=== PATIENT | female | born 1950 | race Caucasian/White ===

== ENCOUNTER 2018-04-26 18:16 | Inpatient (IN) | payer MEDICARE, OTHER ==
[2018-04-26] MEDS ORDERED: NORepinephrine 8MG/250 ML (PMX 250 ML IV (18:43)
[2018-04-26] MEDS: NORepinephrine 8MG/250 ML (PMX 250 ML IV (19:04)
[2018-04-26 19:54] LABS: ADD MAN DIFF? NO
[2018-04-26 19:56] LABS: WHITE BLOOD COUNT 17.2 10^3/ul (4.8-10.8)
[2018-04-26 19:56] LABS: ABNORMAL IP MESSAGE 1; BASOPHILS % 0.2 % (0.0-2.0); EOSINOPHILS % 0.1 % (0.0-7.0); HEMATOCRIT 31.2 % (37.0-47.0); HEMOGLOBIN 9.4 g/dl (12.0-16.0); LYMPHOCYTES # 1.1 10^3/ul (0.8-2.9); LYMPHOCYTES % 6.1 % (15.0-51.0); MEAN CORPUSCULAR HEMOGLOBIN 33.9 pg (29.0-33.0); MEAN CORPUSCULAR HGB CONC 30.1 g/dl (32.0-37.0); MEAN CORPUSCULAR VOLUME 112.6 fl (82.0-101.0); MEAN PLATELET VOLUME 11.9 fl (7.4-10.4); MONOCYTE # 1.6 10^3/ul (0.3-0.9); MONOCYTES % 9.2 % (0.0-11.0); NEUTROPHIL # 14.4 10^3/ul (1.6-7.5); NEUTROPHILS % 83.5 % (39.0-77.0); PLATELET COUNT 256 10^3/UL (140-415); RED BLOOD COUNT 2.77 10^6/ul (4.20-5.40); RED CELL DISTRIBUTION WIDTH 13.9 % (11.5-14.5)
[2018-04-26 20:02] LABS: POSITIVE DIFF @See below
[2018-04-26] MEDS ORDERED: ONDANSETRON 4 MG INJ IV (20:30)
[2018-04-26 20:34] LABS: ALANINE AMINOTRANSFERASE 426 IU/L (13-69); ALBUMIN 3.3 g/dl (3.3-4.9); ALBUMIN/GLOBULIN RATIO 0.89; ALKALINE PHOSPHATASE 362 IU/L (42-121); ANION GAP 9 (5-13); ASPARTATE AMINO TRANSFERASE 307 IU/L (15-46); BILIRUBIN,INDIRECT 0.4 mg/dl (0-1.1); BILIRUBIN,TOTAL 3.9 mg/dl (0.2-1.3); BLOOD UREA NITROGEN 57 mg/dl (7-20); CALCIUM 8.8 mg/dl (8.4-10.2); CARBON DIOXIDE 26 mmol/L (21-31); CHLORIDE 114 mmol/L (97-110); CREATININE 1.42 mg/dl (0.44-1.00); Estimated GFR 37 mL/min (>60); GLUCOSE 148 mg/dl (70-220); MAGNESIUM 3.4 mg/dl (1.7-2.5); POTASSIUM 4.8 mmol/L (3.5-5.1); SODIUM 149 mmol/L (135-144)
[2018-04-26 20:51] LABS: HAAIG REFLEX REFLEX FILED
[2018-04-26 21:26] LABS: LACTIC ACID 1.4 mmol/L (0.5-2.0)
[2018-04-26] MEDS ORDERED: VANCOMYCIN IV PER PHARMACY XX (21:30)
[2018-04-26 21:50] LABS: THYROID STIMULATING HORMONE 0.054 MIU/L (0.465-4.680)
[2018-04-26 21:53] LABS: HEPATITIS B SURFACE ANTIGEN NEGATIVE (NEGATIVE)
[2018-04-26] MEDS: ALBUMIN HUMAN 25% 100 ML IV ×2 (21:58→23:04)
[2018-04-26] MEDS: VANCOMYCIN HCL 1.5 GM in SOD CHLORIDE 0.9% 250 ML IVPB (22:00)
[2018-04-26 22:10] LABS: HEPATITIS B CORE ANTIBODY NEGATIVE (NEGATIVE); HEPATITIS C VIRAL ANTIBODY NEGATIVE (NEGATIVE)
[2018-04-26 23:22] LABS: HEPATITIS B SURFACE ANTIBODY POSITIVE (NEGATIVE)
[2018-04-27] MEDS: SOD CHLORIDE 0.9% 1,000 ML IV (01:14)
[2018-04-27] MEDS: DEXTROSE 5%-0.45% NACL 1,000 ML IV ×3 (01:14→21:55)
[2018-04-27 04:52] LABS: AADO2 Arterial 308.5 mmHg (7.0-24.0); Arterial Base Excess -0.8 mmol/L (-3.0-3); Arterial Blood Gas Oxygen Sat 95.7 mmHG (95.0-98.0); Arterial COHb 0.1 % (0.0-3.0); Arterial Fraction of Oxyhgb 95.3 % (93.0-99.0); Arterial HCO3 23.6 mmol/L (22.0-26.0); Arterial MetHb 0.3 % (0.0-1.5); Arterial pCO2 38.3 mmhg (35-45); MODE TRACH COLLAR; Site Right Radial
[2018-04-27 05:27] LABS: ADD MAN DIFF? NO
[2018-04-27 05:34] LABS: WHITE BLOOD COUNT 15.5 10^3/ul (4.8-10.8)
[2018-04-27 05:34] LABS: BASOPHILS % 0.2 % (0.0-2.0); EOSINOPHILS % 0.2 % (0.0-7.0); HEMATOCRIT 26.8 % (37.0-47.0); HEMOGLOBIN 8.3 g/dl (12.0-16.0); LYMPHOCYTES # 1.2 10^3/ul (0.8-2.9); LYMPHOCYTES % 7.8 % (15.0-51.0); MEAN CORPUSCULAR HEMOGLOBIN 34.7 pg (29.0-33.0); MEAN CORPUSCULAR VOLUME 112.1 fl (82.0-101.0); MEAN PLATELET VOLUME 12.9 fl (7.4-10.4); MONOCYTE # 1.3 10^3/ul (0.3-0.9); MONOCYTES % 8.6 % (0.0-11.0); NEUTROPHIL # 12.8 10^3/ul (1.6-7.5); NEUTROPHILS % 82.6 % (39.0-77.0); PLATELET COUNT 215 10^3/UL (140-415); RED BLOOD COUNT 2.39 10^6/ul (4.20-5.40); RED CELL DISTRIBUTION WIDTH 14.1 % (11.5-14.5)
[2018-04-27] MEDS: PIPER-TAZO 3.375 GM IV (PMX) 100 ML IVPB ×3 (05:44→21:29)
[2018-04-27] MEDS: PANTOPRAZOLE 40 MG INJ IV (05:44)
[2018-04-27 05:56] LABS: IRON 19 ug/dl (35-150)
[2018-04-27 06:06] LABS: % IRON SATURATION 10 % SAT (22-52); TOTAL IRON BINDING CAPACITY 188 ug/dl (241-421)
[2018-04-27 06:17] LABS: ALANINE AMINOTRANSFERASE 311 IU/L (13-69); ALBUMIN 3.6 g/dl (3.3-4.9); ALKALINE PHOSPHATASE 290 IU/L (42-121); ANION GAP 10 (5-13); ASPARTATE AMINO TRANSFERASE 187 IU/L (15-46); BILIRUBIN,INDIRECT 0.5 mg/dl (0-1.1); BILIRUBIN,TOTAL 4.4 mg/dl (0.2-1.3); BLOOD UREA NITROGEN 54 mg/dl (7-20); CALCIUM 8.7 mg/dl (8.4-10.2); CARBON DIOXIDE 25 mmol/L (21-31); CHLORIDE 114 mmol/L (97-110); CHOL/HDL RATIO 7.8 RATIO; CHOLESTEROL 142 mg/dl (100-200); CREATININE 1.56 mg/dl (0.44-1.00); Estimated GFR 33 mL/min (>60); GLUCOSE 147 mg/dl (70-220); HDL CHOLESTEROL 18 mg/dl (33-92); LDL CHOLESTEROL,CALCULATED 95 mg/dl; POTASSIUM 4.2 mmol/L (3.5-5.1); SODIUM 149 mmol/L (135-144); TOTAL PROTEIN 7.2 g/dl (6.1-8.1); TRIGLYCERIDES 144 mg/dl (0-149)
[2018-04-27 06:31] LABS: ACETAMINOPHEN < 10.0 ug/ml (10.0-30.0)
[2018-04-27 06:45] LABS: FREE T4 (FREE THYROXINE) 1.62 ng/dl (0.78-2.44)
[2018-04-27 06:46] LABS: FREE T3 3.11 pg/ml (2.77-5.27)
[2018-04-27] MEDS: SODIUM CHLORIDE 0.45% 500 ML BAG IV* (06:49)
[2018-04-27 07:09] LABS: FOLATE > 20.0 ng/ml (2.8-20.0)
[2018-04-27] MEDS: ALBUTEROL 0.083% (NEB) 2.5 MG/3 ML AMP NEB ×2 (07:52→14:14)
[2018-04-27] MEDS: FOLIC ACID 1 MG TAB GTB (08:15)
[2018-04-27] MEDS: ACETAMINOPHEN 325 MG TAB GTB ×2 (08:15→19:56)
[2018-04-27] MEDS: LEVETIRACETAM (100 MG/ML) 5ML CUP GTB ×2 (08:15→20:25)
[2018-04-27] MEDS: PHENOBARBITAL (4 MG/ML) 5ML CUP GTB ×2 (09:02→20:25)
[2018-04-27] MEDS: NA PHOSPHATE/BIPHOS 133 ML ENEMA PR (12:28)
[2018-04-27 12:58] LABS: INR 1.33; PROTIME 16.6 Sec (11.9-14.9); PT RATIO 1.3
[2018-04-27] MEDS: NORepinephrine 8MG/250 ML (PMX 250 ML IV (14:52)
[2018-04-27 14:58] LABS: AADO2 Arterial 573.3 mmHg (7.0-24.0); Allen Test ACCEPTAB; Arterial Base Excess -4.1 mmol/L (-3.0-3); Arterial COHb 0.3 % (0.0-3.0); Arterial Fraction of Oxyhgb 93.5 % (93.0-99.0); Arterial HCO3 22.9 mmol/L (22.0-26.0); Arterial MetHb 0.2 % (0.0-1.5); Arterial pCO2 50.7 mmhg (35-45); MODE TRACH COLLAR; Site Right Radial
[2018-04-27] MEDS: FENTAnyl (DRIP) 1000 mcg/100mL 100 ML IV (15:48)
[2018-04-27] MEDS: VANCOMYCIN 1 GM 250 ML IVPB (21:57)
[2018-04-28] MEDS: NORepinephrine 8MG/250 ML (PMX 250 ML IV ×5 (00:38→22:23)
[2018-04-28 05:06] LABS: ADD MAN DIFF? NO
[2018-04-28] MEDS: PANTOPRAZOLE 40 MG INJ IV (05:12)
[2018-04-28] MEDS: PIPER-TAZO 3.375 GM IV (PMX) 100 ML IVPB ×3 (05:12→22:30)
[2018-04-28 05:17] LABS: WHITE BLOOD COUNT 15.3 10^3/ul (4.8-10.8)
[2018-04-28 05:17] LABS: BASOPHILS % 0.2 % (0.0-2.0); EOSINOPHILS # 0.5 10^3/ul (0.0-0.5); EOSINOPHILS % 3.2 % (0.0-7.0); HEMATOCRIT 27.5 % (37.0-47.0); HEMOGLOBIN 8.4 g/dl (12.0-16.0); LYMPHOCYTES # 1.8 10^3/ul (0.8-2.9); LYMPHOCYTES % 11.5 % (15.0-51.0); MEAN CORPUSCULAR HEMOGLOBIN 33.9 pg (29.0-33.0); MEAN CORPUSCULAR HGB CONC 30.5 g/dl (32.0-37.0); MEAN CORPUSCULAR VOLUME 110.9 fl (82.0-101.0); MEAN PLATELET VOLUME 12.5 fl (7.4-10.4); MONOCYTES % 6.4 % (0.0-11.0); PLATELET COUNT 239 10^3/UL (140-415); RED BLOOD COUNT 2.48 10^6/ul (4.20-5.40); RED CELL DISTRIBUTION WIDTH 14.4 % (11.5-14.5)
[2018-04-28] MEDS: ACETAMINOPHEN 325 MG TAB GTB ×2 (05:19→12:14)
[2018-04-28 05:41] LABS: ALANINE AMINOTRANSFERASE 275 IU/L (13-69); ALBUMIN 3.2 g/dl (3.3-4.9); ALBUMIN/GLOBULIN RATIO 0.91; ALKALINE PHOSPHATASE 293 IU/L (42-121); ANION GAP 13 (5-13); ASPARTATE AMINO TRANSFERASE 210 IU/L (15-46); BILIRUBIN,INDIRECT 0.4 mg/dl (0-1.1); BILIRUBIN,TOTAL 3.1 mg/dl (0.2-1.3); BLOOD UREA NITROGEN 55 mg/dl (7-20); CALCIUM 8.1 mg/dl (8.4-10.2); CARBON DIOXIDE 20 mmol/L (21-31); CHLORIDE 116 mmol/L (97-110); CREATININE 2.03 mg/dl (0.44-1.00); Estimated GFR 24 mL/min (>60); GLUCOSE 165 mg/dl (70-220); POTASSIUM 3.6 mmol/L (3.5-5.1); SODIUM 149 mmol/L (135-144); TOTAL PROTEIN 6.7 g/dl (6.1-8.1)
[2018-04-28] MEDS: DEXTROSE 5% 1,000 ML IV ×2 (06:14→15:52)
[2018-04-28] MEDS: LEVETIRACETAM (100 MG/ML) 5ML CUP GTB ×2 (09:30→20:51)
[2018-04-28] MEDS: FOLIC ACID 1 MG TAB GTB (09:31)
[2018-04-28] MEDS: PHENOBARBITAL (4 MG/ML) 5ML CUP GTB ×2 (09:31→20:52)
[2018-04-28] MEDS: PHENYLephrine 40 MG in DEXTROSE 5% 246 ML IV ×4 (11:08→22:22)
[2018-04-28] MEDS: DILTIAZEM 25 MG INJ IV (15:45)
[2018-04-28] MEDS: POTASSIUM CHLORIDE 100 ML IVPB ×2 (15:51→18:29)
[2018-04-28] MEDS: AMIODARONE 150MG/D5W BOLUS 100 ML IV (15:59)
[2018-04-28 16:01] LABS: MAGNESIUM 2.9 mg/dl (1.7-2.5)
[2018-04-28] MEDS: AMIODARONE 900 MG in DEXTROSE 5% 482 ML IV ×2 (16:20→22:26)
[2018-04-28] MEDS: ALBUTEROL 0.083% (NEB) 2.5 MG/3 ML AMP NEB (19:40)
[2018-04-28] MEDS: VANCOMYCIN 1 GM 250 ML IVPB (23:10)
[2018-04-29] MEDS: PHENYLephrine 40 MG in DEXTROSE 5% 246 ML IV ×5 (00:17→21:22)
[2018-04-29] MEDS: NORepinephrine 8MG/250 ML (PMX 250 ML IV ×3 (00:44→14:35)
[2018-04-29] MEDS: VASOPRESSIN 60 UNIT in DEXTROSE 5% 57 ML IV ×3 (00:55→23:29)
[2018-04-29] MEDS: DEXTROSE 5% 1,000 ML IV (01:45)
[2018-04-29] MEDS: ACETAMINOPHEN 325 MG TAB GTB (03:04)
[2018-04-29 05:31] LABS: ADD MAN DIFF? NO
[2018-04-29 05:52] LABS: BASOPHIL # 0.1 10^3/ul (0.0-0.1); BASOPHILS % 0.3 % (0.0-2.0); EOSINOPHILS # 0.9 10^3/ul (0.0-0.5); EOSINOPHILS % 6.1 % (0.0-7.0); HEMATOCRIT 25.5 % (37.0-47.0); HEMOGLOBIN 8.1 g/dl (12.0-16.0); LYMPHOCYTES # 1.6 10^3/ul (0.8-2.9); LYMPHOCYTES % 10.7 % (15.0-51.0); MEAN CORPUSCULAR HEMOGLOBIN 34.2 pg (29.0-33.0); MEAN CORPUSCULAR HGB CONC 31.8 g/dl (32.0-37.0); MEAN CORPUSCULAR VOLUME 107.6 fl (82.0-101.0); MEAN PLATELET VOLUME 12.1 fl (7.4-10.4); MONOCYTES % 6.3 % (0.0-11.0); NEUTROPHIL # 11.6 10^3/ul (1.6-7.5); NEUTROPHILS % 76.1 % (39.0-77.0); PLATELET COUNT 238 10^3/UL (140-415); RED BLOOD COUNT 2.37 10^6/ul (4.20-5.40); RED CELL DISTRIBUTION WIDTH 14.1 % (11.5-14.5)
[2018-04-29 05:52] LABS: WHITE BLOOD COUNT 15.2 10^3/ul (4.8-10.8)
[2018-04-29] MEDS: PANTOPRAZOLE 40 MG INJ IV (06:08)
[2018-04-29] MEDS: PIPER-TAZO 3.375 GM IV (PMX) 100 ML IVPB ×3 (06:11→22:08)
[2018-04-29 06:20] LABS: VANCOMYCIN,RANDOM 25.3 ug/ml
[2018-04-29 07:34] LABS: ALANINE AMINOTRANSFERASE 165 IU/L (13-69); ALBUMIN 2.6 g/dl (3.3-4.9); ALBUMIN/GLOBULIN RATIO 0.78; ALKALINE PHOSPHATASE 202 IU/L (42-121); ANION GAP 11 (5-13); ASPARTATE AMINO TRANSFERASE 93 IU/L (15-46); BILIRUBIN,INDIRECT 0.3 mg/dl (0-1.1); BILIRUBIN,TOTAL 0.7 mg/dl (0.2-1.3); BLOOD UREA NITROGEN 48 mg/dl (7-20); CALCIUM 7.4 mg/dl (8.4-10.2); CARBON DIOXIDE 17 mmol/L (21-31); CHLORIDE 107 mmol/L (97-110); CREATININE 1.99 mg/dl (0.44-1.00); Estimated GFR 25 mL/min (>60); GLUCOSE 175 mg/dl (70-220); POTASSIUM 3.7 mmol/L (3.5-5.1); SODIUM 135 mmol/L (135-144); TOTAL PROTEIN 5.9 g/dl (6.1-8.1)
[2018-04-29 07:50] LABS: AADO2 Arterial 127.6 mmHg (7.0-24.0); Allen Test ACCEPTAB; Arterial Base Excess -8.7 mmol/L (-3.0-3); Arterial Blood Gas Oxygen Sat 99.1 mmHG (95.0-98.0); Arterial COHb 0.3 % (0.0-3.0); Arterial Fraction of Oxyhgb 98.4 % (93.0-99.0); Arterial MetHb 0.4 % (0.0-1.5); Arterial pCO2 29.9 mmhg (35-45); MODE VENT - AC; Site Right Radial
[2018-04-29] MEDS: FOLIC ACID 1 MG TAB GTB (08:31)
[2018-04-29] MEDS: LEVETIRACETAM (100 MG/ML) 5ML CUP GTB (08:31)
[2018-04-29] MEDS: DEXTROSE 5%-0.45% NACL 1,000 ML IV ×2 (09:56→20:14)
[2018-04-29 11:05] LABS: AMYLASE 136 U/L (11-123)
[2018-04-29 11:05] LABS: LIPASE 246 U/L (23-300)
[2018-04-29] MEDS ORDERED: PHENOBARBITAL (4 MG/ML) 5ML CUP (11:30)
[2018-04-29] MEDS: PHENOBARBITAL (4 MG/ML) 5ML CUP GTB (11:33)
[2018-04-29] MEDS: AMIODARONE 900 MG in DEXTROSE 5% 482 ML IV (15:29)
[2018-04-29] MEDS: AMIODARONE 150MG/D5W BOLUS 100 ML IV (17:21)
[2018-04-29] MEDS: LEVETIRACETAM 500 MG (PMX) 100 ML IVPB (20:14)
[2018-04-29] MEDS: LORAZEPAM 2 MG INJ IV (20:15)
[2018-04-29] MEDS: PHENOBARBITAL 65 MG INJ IV (20:15)
[2018-04-29] MEDS ORDERED: PHENOBARBITAL (4 MG/ML) 5ML CUP GTB (21:00)
[2018-04-29] MEDS ORDERED: LEVETIRACETAM 1500 MG (PMX) 100 ML IVPB (21:00)
[2018-04-29 21:45] LABS: VANCOMYCIN,TROUGH 21.5 ug/ml (10.0-20.0)
[2018-04-30] MEDS: PHENYLephrine 40 MG in DEXTROSE 5% 246 ML IV ×4 (01:55→19:59)
[2018-04-30 03:59] LABS: PHENOBARBITAL 29.9 mg/L (15.0-40.0)
[2018-04-30] MEDS: DEXTROSE 5%-0.45% NACL 1,000 ML IV (05:23)
[2018-04-30 05:33] LABS: ADD MAN DIFF? NO
[2018-04-30] MEDS: PIPER-TAZO 3.375 GM IV (PMX) 100 ML IVPB (05:38)
[2018-04-30 05:39] LABS: WHITE BLOOD COUNT 10.5 10^3/ul (4.8-10.8)
[2018-04-30 05:39] LABS: BASOPHILS % 0.3 % (0.0-2.0); EOSINOPHILS # 0.7 10^3/ul (0.0-0.5); EOSINOPHILS % 6.3 % (0.0-7.0); HEMATOCRIT 22.5 % (37.0-47.0); LYMPHOCYTES # 1.4 10^3/ul (0.8-2.9); LYMPHOCYTES % 13.3 % (15.0-51.0); MEAN CORPUSCULAR HEMOGLOBIN 33.3 pg (29.0-33.0); MEAN CORPUSCULAR HGB CONC 31.1 g/dl (32.0-37.0); MEAN CORPUSCULAR VOLUME 107.1 fl (82.0-101.0); MONOCYTE # 0.7 10^3/ul (0.3-0.9); MONOCYTES % 6.6 % (0.0-11.0); NEUTROPHIL # 7.6 10^3/ul (1.6-7.5); NEUTROPHILS % 72.9 % (39.0-77.0); PLATELET COUNT 217 10^3/UL (140-415); RED CELL DISTRIBUTION WIDTH 13.7 % (11.5-14.5)
[2018-04-30] MEDS: PANTOPRAZOLE 40 MG INJ IV (05:39)
[2018-04-30 06:14] LABS: MAGNESIUM 2.1 mg/dl (1.7-2.5)
[2018-04-30 06:35] LABS: ALANINE AMINOTRANSFERASE 115 IU/L (13-69); ALBUMIN 2.4 g/dl (3.3-4.9); ALBUMIN/GLOBULIN RATIO 0.77; ALKALINE PHOSPHATASE 168 IU/L (42-121); ANION GAP 14 (5-13); ASPARTATE AMINO TRANSFERASE 47 IU/L (15-46); BILIRUBIN,INDIRECT 0.1 mg/dl (0-1.1); BILIRUBIN,TOTAL 0.1 mg/dl (0.2-1.3); BLOOD UREA NITROGEN 40 mg/dl (7-20); CALCIUM 7.2 mg/dl (8.4-10.2); CARBON DIOXIDE 16 mmol/L (21-31); CHLORIDE 101 mmol/L (97-110); CREATININE 2.18 mg/dl (0.44-1.00); Estimated GFR 22 mL/min (>60); GLUCOSE 113 mg/dl (70-220); POTASSIUM 3.1 mmol/L (3.5-5.1); SODIUM 131 mmol/L (135-144); TOTAL PROTEIN 5.5 g/dl (6.1-8.1)
[2018-04-30 07:49] LABS: AADO2 Arterial 72.3 mmHg (7.0-24.0); Allen Test ACCEPTAB; Arterial Base Excess -8.1 mmol/L (-3.0-3); Arterial Blood Gas Oxygen Sat 98.4 mmHG (95.0-98.0); Arterial COHb 0.2 % (0.0-3.0); Arterial HCO3 15.5 mmol/L (22.0-26.0); Arterial MetHb 0.2 % (0.0-1.5); Arterial pCO2 24.9 mmhg (35-45); MODE VENT - AC; Site Right Radial
[2018-04-30] MEDS: FOLIC ACID 1 MG TAB GTB (09:14)
[2018-04-30] MEDS: AMIODARONE 200 MG TAB PO ×2 (09:14→20:58)
[2018-04-30] MEDS: PHENOBARBITAL 65 MG INJ IV ×2 (09:14→20:57)
[2018-04-30] MEDS: POTASSIUM CHLORIDE 20 MEQ POWDER FOR ORAL SOLN PO (09:14)
[2018-04-30] MEDS: LEVETIRACETAM 500 MG (PMX) 100 ML IVPB ×2 (09:15→20:57)
[2018-04-30] MEDS: D5W-0.45 NACL + KCL 20 MEQ 1,000 ML IV ×2 (09:15→22:05)
[2018-04-30] MEDS: VANCOMYCIN 1 GM 250 ML IVPB (10:56)
[2018-04-30] MEDS: VASOPRESSIN 60 UNIT in DEXTROSE 5% 57 ML IV (12:00)
[2018-04-30] MEDS: MEROPENEM 500MG/50 ML (PMX) 50 ML IVPB ×2 (15:12→23:51)
[2018-04-30] MEDS: LINEZOLID 600 MG/D5W (PMX) 300 ML IVPB (21:18)
[2018-05-01 04:50] LABS: ADD MAN DIFF? NO
[2018-05-01 04:56] LABS: WHITE BLOOD COUNT 9.1 10^3/ul (4.8-10.8)
[2018-05-01 04:56] LABS: BASOPHILS % 0.2 % (0.0-2.0); EOSINOPHILS # 0.6 10^3/ul (0.0-0.5); HEMATOCRIT 21.9 % (37.0-47.0); HEMOGLOBIN 7.2 g/dl (12.0-16.0); LYMPHOCYTES # 1.1 10^3/ul (0.8-2.9); LYMPHOCYTES % 12.3 % (15.0-51.0); MEAN CORPUSCULAR HGB CONC 32.9 g/dl (32.0-37.0); MEAN CORPUSCULAR VOLUME 103.3 fl (82.0-101.0); MEAN PLATELET VOLUME 11.7 fl (7.4-10.4); MONOCYTE # 0.7 10^3/ul (0.3-0.9); MONOCYTES % 7.8 % (0.0-11.0); NEUTROPHIL # 6.5 10^3/ul (1.6-7.5); PLATELET COUNT 243 10^3/UL (140-415); RED BLOOD COUNT 2.12 10^6/ul (4.20-5.40); RED CELL DISTRIBUTION WIDTH 13.6 % (11.5-14.5)
[2018-05-01 05:15] LABS: IRON 37 ug/dl (35-150)
[2018-05-01 05:16] LABS: ALANINE AMINOTRANSFERASE 93 IU/L (13-69); ALBUMIN 2.6 g/dl (3.3-4.9); ALBUMIN/GLOBULIN RATIO 0.83; ALKALINE PHOSPHATASE 172 IU/L (42-121); ANION GAP 12 (5-13); ASPARTATE AMINO TRANSFERASE 38 IU/L (15-46); BILIRUBIN,INDIRECT 0.2 mg/dl (0-1.1); BILIRUBIN,TOTAL 0.2 mg/dl (0.2-1.3); BLOOD UREA NITROGEN 36 mg/dl (7-20); CALCIUM 7.8 mg/dl (8.4-10.2); CARBON DIOXIDE 15 mmol/L (21-31); CHLORIDE 104 mmol/L (97-110); CREATININE 2.39 mg/dl (0.44-1.00); Estimated GFR 20 mL/min (>60); GLUCOSE 95 mg/dl (70-220); POTASSIUM 3.8 mmol/L (3.5-5.1); SODIUM 131 mmol/L (135-144); TOTAL PROTEIN 5.7 g/dl (6.1-8.1)
[2018-05-01 05:24] LABS: % IRON SATURATION 25 % SAT (22-52); TOTAL IRON BINDING CAPACITY 147 ug/dl (241-421)
[2018-05-01] MEDS: PANTOPRAZOLE 40 MG INJ IV (05:38)
[2018-05-01] MEDS: PHENYLephrine 40 MG in DEXTROSE 5% 246 ML IV (05:43)
[2018-05-01 06:11] LABS: PHOSPHORUS 3.3 mg/dl (2.5-4.9)
[2018-05-01] MEDS: LEVETIRACETAM 500 MG (PMX) 100 ML IVPB ×2 (09:35→20:49)
[2018-05-01] MEDS: FOLIC ACID 1 MG TAB GTB (09:38)
[2018-05-01] MEDS: AMIODARONE 200 MG TAB PO ×2 (09:38→20:53)
[2018-05-01] MEDS: PHENOBARBITAL 65 MG INJ IV ×2 (09:50→20:50)
[2018-05-01] MEDS: MEROPENEM 500MG/50 ML (PMX) 50 ML IVPB ×2 (09:50→20:49)
[2018-05-01] MEDS: LINEZOLID 600 MG/D5W (PMX) 300 ML IVPB ×2 (10:49→20:49)
[2018-05-01] MEDS: D5W-0.45 NACL + KCL 20 MEQ 1,000 ML IV ×2 (10:59→22:50)
[2018-05-01] MEDS: VASOPRESSIN 60 UNIT in DEXTROSE 5% 57 ML IV ×3 (12:00→22:47)
[2018-05-01] MEDS: LIDOCAINE 1% (MPF) 5 ML VIAL SC (12:38)
[2018-05-01 14:47] LABS: IMMEDIATE SPIN CROSSMATCH 1 1
[2018-05-01 20:09] LABS: INR 1.11; PROTIME 14.4 Sec (11.9-14.9); PT RATIO 1.1
[2018-05-01] MEDS: EPOETIN 4000 UNITS/ML (NON ESRD/NON ONCOLOGY) SC (20:51)
[2018-05-02 04:07] LABS: PHENOBARBITAL 28.8 mg/L (15.0-40.0)
[2018-05-02 05:19] LABS: ADD MAN DIFF? NO
[2018-05-02 05:29] LABS: BASOPHILS % 0.3 % (0.0-2.0); EOSINOPHILS # 0.5 10^3/ul (0.0-0.5); EOSINOPHILS % 6.8 % (0.0-7.0); HEMATOCRIT 25.5 % (37.0-47.0); HEMOGLOBIN 8.1 g/dl (12.0-16.0); LYMPHOCYTES % 13.8 % (15.0-51.0); MEAN CORPUSCULAR HEMOGLOBIN 32.4 pg (29.0-33.0); MEAN CORPUSCULAR HGB CONC 31.8 g/dl (32.0-37.0); MEAN PLATELET VOLUME 11.3 fl (7.4-10.4); MONOCYTE # 0.6 10^3/ul (0.3-0.9); MONOCYTES % 8.5 % (0.0-11.0); NEUTROPHIL # 5.3 10^3/ul (1.6-7.5); NEUTROPHILS % 70.1 % (39.0-77.0); PLATELET COUNT 258 10^3/UL (140-415); RED CELL DISTRIBUTION WIDTH 16.7 % (11.5-14.5)
[2018-05-02 05:29] LABS: WHITE BLOOD COUNT 7.5 10^3/ul (4.8-10.8)
[2018-05-02 05:44] LABS: ANION GAP 8 (5-13); BLOOD UREA NITROGEN 33 mg/dl (7-20); CALCIUM 8.1 mg/dl (8.4-10.2); CARBON DIOXIDE 16 mmol/L (21-31); CHLORIDE 111 mmol/L (97-110); CREATININE 2.15 mg/dl (0.44-1.00); Estimated GFR 23 mL/min (>60); GLUCOSE 97 mg/dl (70-220); MAGNESIUM 1.8 mg/dl (1.7-2.5); PHOSPHORUS 3.6 mg/dl (2.5-4.9); POTASSIUM 3.8 mmol/L (3.5-5.1); SODIUM 135 mmol/L (135-144)
[2018-05-02] MEDS: PANTOPRAZOLE 40 MG INJ IV (05:51)
[2018-05-02 07:35] LABS: AADO2 Arterial 78.2 mmHg (7.0-24.0); Allen Test ACCEPTAB; Arterial Base Excess -10.2 mmol/L (-3.0-3); Arterial Blood Gas Oxygen Sat 97.9 mmHG (95.0-98.0); Arterial COHb 0.3 % (0.0-3.0); Arterial Fraction of Oxyhgb 97.4 % (93.0-99.0); Arterial HCO3 13.7 mmol/L (22.0-26.0); Arterial MetHb 0.2 % (0.0-1.5); Arterial pCO2 24.5 mmhg (35-45); MODE VENT - AC; Site Right Radial
[2018-05-02] MEDS: LEVETIRACETAM 500 MG (PMX) 100 ML IVPB ×2 (09:03→20:44)
[2018-05-02] MEDS: AMIODARONE 200 MG TAB PO ×2 (09:06→20:45)
[2018-05-02] MEDS: FOLIC ACID 1 MG TAB GTB (09:06)
[2018-05-02] MEDS: PHENOBARBITAL 65 MG INJ IV ×2 (09:16→20:44)
[2018-05-02] MEDS: MEROPENEM 500MG/50 ML (PMX) 50 ML IVPB ×2 (09:55→20:44)
[2018-05-02] MEDS: LINEZOLID 600 MG/D5W (PMX) 300 ML IVPB ×2 (11:23→20:44)
[2018-05-02] MEDS: CITRIC ACID/NA CITRATE 30 ML CUP PO ×3 (11:36→21:47)
[2018-05-02] MEDS: VASOPRESSIN 60 UNIT in DEXTROSE 5% 57 ML IV (12:00)
[2018-05-02] MEDS: D5W-0.45 NACL + KCL 20 MEQ 1,000 ML IV ×2 (12:15→23:30)
[2018-05-02 12:45] LABS: OCCULT BLOOD STOOL NEGATIVE (NEGATIVE)
[2018-05-02] MEDS: SOD FERRIC GLUC COMPLX 125 MG in SOD CHLORIDE 0.9% 100 ML IVPB (13:58)
[2018-05-02] MEDS ORDERED: IOHEXOL 300MG/ML 30 ML BTL (16:51)
[2018-05-02] MEDS: INDOMETHACIN 50 MG SUPP PR (17:30)
[2018-05-03] MEDS: D5W-0.45 NACL + KCL 20 MEQ 1,000 ML IV ×2 (02:45→17:16)
[2018-05-03 04:56] LABS: ADD MAN DIFF? NO
[2018-05-03 05:02] LABS: BASOPHILS % 0.3 % (0.0-2.0); EOSINOPHILS # 0.4 10^3/ul (0.0-0.5); EOSINOPHILS % 4.3 % (0.0-7.0); HEMATOCRIT 26.1 % (37.0-47.0); HEMOGLOBIN 8.3 g/dl (12.0-16.0); LYMPHOCYTES # 1.1 10^3/ul (0.8-2.9); LYMPHOCYTES % 12.5 % (15.0-51.0); MEAN CORPUSCULAR HEMOGLOBIN 32.7 pg (29.0-33.0); MEAN CORPUSCULAR HGB CONC 31.8 g/dl (32.0-37.0); MEAN CORPUSCULAR VOLUME 102.8 fl (82.0-101.0); MEAN PLATELET VOLUME 10.9 fl (7.4-10.4); MONOCYTE # 0.7 10^3/ul (0.3-0.9); MONOCYTES % 7.6 % (0.0-11.0); NEUTROPHIL # 6.6 10^3/ul (1.6-7.5); NEUTROPHILS % 74.5 % (39.0-77.0); PLATELET COUNT 351 10^3/UL (140-415); RED BLOOD COUNT 2.54 10^6/ul (4.20-5.40); RED CELL DISTRIBUTION WIDTH 16.8 % (11.5-14.5)
[2018-05-03 05:02] LABS: WHITE BLOOD COUNT 8.9 10^3/ul (4.8-10.8)
[2018-05-03 05:14] LABS: MAGNESIUM 1.7 mg/dl (1.7-2.5)
[2018-05-03] MEDS: PANTOPRAZOLE 40 MG INJ IV (05:21)
[2018-05-03 05:53] LABS: ALANINE AMINOTRANSFERASE 61 IU/L (13-69); ALBUMIN 2.5 g/dl (3.3-4.9); ALKALINE PHOSPHATASE 169 IU/L (42-121); ANION GAP 9 (5-13); ASPARTATE AMINO TRANSFERASE 31 IU/L (15-46); BILIRUBIN,INDIRECT 0.1 mg/dl (0-1.1); BILIRUBIN,TOTAL 0.1 mg/dl (0.2-1.3); BLOOD UREA NITROGEN 29 mg/dl (7-20); CALCIUM 8.1 mg/dl (8.4-10.2); CARBON DIOXIDE 16 mmol/L (21-31); CHLORIDE 112 mmol/L (97-110); CREATININE 2.02 mg/dl (0.44-1.00); Estimated GFR 24 mL/min (>60); GLUCOSE 120 mg/dl (70-220); SODIUM 137 mmol/L (135-144); TOTAL PROTEIN 5.6 g/dl (6.1-8.1)
[2018-05-03 06:16] LABS: PHENOBARBITAL 26.8 mg/L (15.0-40.0)
[2018-05-03] MEDS: FUROSEMIDE 20 MG INJ IV (09:17)
[2018-05-03] MEDS: CITRIC ACID/NA CITRATE 30 ML CUP PO ×3 (09:17→20:14)
[2018-05-03] MEDS: FOLIC ACID 1 MG TAB GTB (09:20)
[2018-05-03] MEDS: AMIODARONE 200 MG TAB PO ×2 (09:20→20:14)
[2018-05-03] MEDS: MEROPENEM 500MG/50 ML (PMX) 50 ML IVPB ×2 (09:20→20:35)
[2018-05-03] MEDS: LEVETIRACETAM 500 MG (PMX) 100 ML IVPB ×2 (09:20→20:35)
[2018-05-03] MEDS: LINEZOLID 600 MG/D5W (PMX) 300 ML IVPB (09:36)
[2018-05-03] MEDS: PHENOBARBITAL 65 MG INJ IV ×2 (10:15→20:13)
[2018-05-03] MEDS: VASOPRESSIN 60 UNIT in DEXTROSE 5% 57 ML IV ×2 (11:44)
[2018-05-03] MEDS ORDERED: LORAZEPAM 1 MG TAB GTB (12:00)
[2018-05-03] MEDS: SOD FERRIC GLUC COMPLX 125 MG in SOD CHLORIDE 0.9% 100 ML IVPB (13:10)
[2018-05-03] MEDS: EPOETIN 4000 UNITS/ML (NON ESRD/NON ONCOLOGY) SC (17:20)
[2018-05-04 04:59] LABS: ADD MAN DIFF? NO
[2018-05-04 05:14] LABS: WHITE BLOOD COUNT 7.9 10^3/ul (4.8-10.8)
[2018-05-04 05:14] LABS: BASOPHILS % 0.4 % (0.0-2.0); EOSINOPHILS # 0.7 10^3/ul (0.0-0.5); EOSINOPHILS % 8.3 % (0.0-7.0); HEMATOCRIT 25.9 % (37.0-47.0); HEMOGLOBIN 8.2 g/dl (12.0-16.0); LYMPHOCYTES # 1.3 10^3/ul (0.8-2.9); LYMPHOCYTES % 15.8 % (15.0-51.0); MEAN CORPUSCULAR HEMOGLOBIN 32.2 pg (29.0-33.0); MEAN CORPUSCULAR HGB CONC 31.7 g/dl (32.0-37.0); MEAN CORPUSCULAR VOLUME 101.6 fl (82.0-101.0); MEAN PLATELET VOLUME 10.8 fl (7.4-10.4); MONOCYTE # 0.7 10^3/ul (0.3-0.9); MONOCYTES % 9.2 % (0.0-11.0); NEUTROPHIL # 5.2 10^3/ul (1.6-7.5); NEUTROPHILS % 65.5 % (39.0-77.0); PLATELET COUNT 440 10^3/UL (140-415); RED BLOOD COUNT 2.55 10^6/ul (4.20-5.40); RED CELL DISTRIBUTION WIDTH 16.8 % (11.5-14.5)
[2018-05-04 05:40] LABS: ANION GAP 10 (5-13); BLOOD UREA NITROGEN 27 mg/dl (7-20); CALCIUM 8.2 mg/dl (8.4-10.2); CARBON DIOXIDE 19 mmol/L (21-31); CHLORIDE 111 mmol/L (97-110); CREATININE 2.08 mg/dl (0.44-1.00); Estimated GFR 24 mL/min (>60); GLUCOSE 92 mg/dl (70-220); MAGNESIUM 1.6 mg/dl (1.7-2.5); PHOSPHORUS 4.2 mg/dl (2.5-4.9); SODIUM 140 mmol/L (135-144)
[2018-05-04] MEDS: PANTOPRAZOLE 40 MG INJ IV (05:50)
[2018-05-04] MEDS: MAGNESIUM SULFATE 2 GM/50 ML 50 ML IVPB (06:06)
[2018-05-04] MEDS ORDERED: FAMOTIDINE 20 MG TAB GTB (09:00)
[2018-05-04] MEDS: FOLIC ACID 1 MG TAB GTB (09:23)
[2018-05-04] MEDS: CITRIC ACID/NA CITRATE 30 ML CUP PO ×3 (09:23→20:20)
[2018-05-04] MEDS: FUROSEMIDE 20 MG INJ IV (09:24)
[2018-05-04] MEDS: LEVETIRACETAM 500 MG (PMX) 100 ML IVPB ×2 (09:24→20:21)
[2018-05-04] MEDS: MEROPENEM 500MG/50 ML (PMX) 50 ML IVPB ×2 (09:24→20:21)
[2018-05-04] MEDS: AMIODARONE 200 MG TAB PO ×2 (09:24→20:20)
[2018-05-04] MEDS: PHENOBARBITAL 65 MG INJ IV ×2 (09:26→20:20)
[2018-05-04] MEDS: D5W-0.45 NACL + KCL 20 MEQ 1,000 ML IV (11:03)
[2018-05-04] MEDS: VASOPRESSIN 60 UNIT in DEXTROSE 5% 57 ML IV ×2 (12:00)
[2018-05-04] MEDS: SOD FERRIC GLUC COMPLX 125 MG in SOD CHLORIDE 0.9% 100 ML IVPB (12:26)
[2018-05-05 04:58] LABS: AADO2 Arterial 69.5 mmHg (7.0-24.0); Allen Test ACCEPTAB; Arterial Base Excess -5.2 mmol/L (-3.0-3); Arterial Blood Gas Oxygen Sat 97.9 mmHG (95.0-98.0); Arterial COHb 0.3 % (0.0-3.0); Arterial Fraction of Oxyhgb 97.3 % (93.0-99.0); Arterial HCO3 18.8 mmol/L (22.0-26.0); Arterial MetHb 0.3 % (0.0-1.5); Arterial pCO2 31.1 mmhg (35-45); MODE VENT - AC; Site Right Radial
[2018-05-05 05:16] LABS: ADD MAN DIFF? NO
[2018-05-05 05:28] LABS: BASOPHILS % 0.5 % (0.0-2.0); EOSINOPHILS # 0.6 10^3/ul (0.0-0.5); EOSINOPHILS % 8.5 % (0.0-7.0); HEMATOCRIT 23.6 % (37.0-47.0); HEMOGLOBIN 7.5 g/dl (12.0-16.0); LYMPHOCYTES # 1.2 10^3/ul (0.8-2.9); LYMPHOCYTES % 17.5 % (15.0-51.0); MEAN CORPUSCULAR HEMOGLOBIN 32.8 pg (29.0-33.0); MEAN CORPUSCULAR HGB CONC 31.8 g/dl (32.0-37.0); MEAN CORPUSCULAR VOLUME 103.1 fl (82.0-101.0); MEAN PLATELET VOLUME 10.6 fl (7.4-10.4); MONOCYTE # 0.7 10^3/ul (0.3-0.9); MONOCYTES % 9.9 % (0.0-11.0); NEUTROPHIL # 4.1 10^3/ul (1.6-7.5); NEUTROPHILS % 62.5 % (39.0-77.0); PLATELET COUNT 447 10^3/UL (140-415); RED BLOOD COUNT 2.29 10^6/ul (4.20-5.40); RED CELL DISTRIBUTION WIDTH 16.8 % (11.5-14.5)
[2018-05-05 05:28] LABS: WHITE BLOOD COUNT 6.6 10^3/ul (4.8-10.8)
[2018-05-05] MEDS: PANTOPRAZOLE 40 MG INJ IV (05:47)
[2018-05-05 06:18] LABS: MAGNESIUM 1.8 mg/dl (1.7-2.5)
[2018-05-05 06:42] LABS: ALANINE AMINOTRANSFERASE 36 IU/L (13-69); ALBUMIN 2.2 g/dl (3.3-4.9); ALBUMIN/GLOBULIN RATIO 0.81; ALKALINE PHOSPHATASE 155 IU/L (42-121); ANION GAP 7 (5-13); ASPARTATE AMINO TRANSFERASE 22 IU/L (15-46); BLOOD UREA NITROGEN 24 mg/dl (7-20); CALCIUM 7.6 mg/dl (8.4-10.2); CARBON DIOXIDE 17 mmol/L (21-31); CHLORIDE 113 mmol/L (97-110); CREATININE 1.78 mg/dl (0.44-1.00); Estimated GFR 28 mL/min (>60); GLUCOSE 383 mg/dl (70-220); POTASSIUM 5.4 mmol/L (3.5-5.1); SODIUM 137 mmol/L (135-144); TOTAL PROTEIN 4.9 g/dl (6.1-8.1)
[2018-05-05 07:26] LABS: PHENOBARBITAL 26.7 mg/L (15.0-40.0)
[2018-05-05] MEDS: CITRIC ACID/NA CITRATE 30 ML CUP PO ×3 (08:34→21:06)
[2018-05-05] MEDS: FOLIC ACID 1 MG TAB GTB (08:34)
[2018-05-05] MEDS: AMIODARONE 200 MG TAB PO ×2 (08:34→21:06)
[2018-05-05] MEDS: MEROPENEM 500MG/50 ML (PMX) 50 ML IVPB ×2 (08:35→21:06)
[2018-05-05] MEDS: FUROSEMIDE 20 MG INJ IV ×2 (08:35→18:33)
[2018-05-05] MEDS: LEVETIRACETAM 500 MG (PMX) 100 ML IVPB ×2 (08:35→21:05)
[2018-05-05] MEDS: PHENOBARBITAL 65 MG INJ IV ×2 (08:36→21:05)
[2018-05-05] MEDS: DEXTROSE 5% 1,000 ML IV ×2 (09:59→23:03)
[2018-05-05] MEDS: VASOPRESSIN 60 UNIT in DEXTROSE 5% 57 ML IV ×2 (12:00)
[2018-05-05] MEDS: NA POLYST SULFON 15 GM/60 ML BTL PO (12:30)
[2018-05-05] MEDS: SOD FERRIC GLUC COMPLX 125 MG in SOD CHLORIDE 0.9% 100 ML IVPB (12:35)
[2018-05-05 18:17] LABS: OCCULT BLOOD STOOL NEGATIVE (NEGATIVE)
[2018-05-06 05:20] LABS: ADD MAN DIFF? NO
[2018-05-06 05:26] LABS: AADO2 Arterial 71.9 mmHg (7.0-24.0); Allen Test ACCEPTAB; Arterial Blood Gas Oxygen Sat 96.4 mmHG (95.0-98.0); Arterial COHb 0.4 % (0.0-3.0); Arterial Fraction of Oxyhgb 95.7 % (93.0-99.0); Arterial HCO3 24.9 mmol/L (22.0-26.0); Arterial MetHb 0.3 % (0.0-1.5); Arterial pCO2 46.3 mmhg (35-45); MODE VENT - AC; Site Right Radial
[2018-05-06 05:33] LABS: WHITE BLOOD COUNT 7.7 10^3/ul (4.8-10.8)
[2018-05-06 05:33] LABS: BASOPHILS % 0.4 % (0.0-2.0); EOSINOPHILS # 0.7 10^3/ul (0.0-0.5); EOSINOPHILS % 8.6 % (0.0-7.0); HEMATOCRIT 23.4 % (37.0-47.0); HEMOGLOBIN 7.3 g/dl (12.0-16.0); LYMPHOCYTES # 1.6 10^3/ul (0.8-2.9); LYMPHOCYTES % 20.6 % (15.0-51.0); MEAN CORPUSCULAR HEMOGLOBIN 32.3 pg (29.0-33.0); MEAN CORPUSCULAR HGB CONC 31.2 g/dl (32.0-37.0); MEAN CORPUSCULAR VOLUME 103.5 fl (82.0-101.0); MEAN PLATELET VOLUME 10.5 fl (7.4-10.4); MONOCYTE # 0.7 10^3/ul (0.3-0.9); MONOCYTES % 9.5 % (0.0-11.0); NEUTROPHIL # 4.6 10^3/ul (1.6-7.5); NEUTROPHILS % 60.2 % (39.0-77.0); PLATELET COUNT 519 10^3/UL (140-415); RED BLOOD COUNT 2.26 10^6/ul (4.20-5.40); RED CELL DISTRIBUTION WIDTH 16.7 % (11.5-14.5)
[2018-05-06] MEDS: FUROSEMIDE 20 MG INJ IV ×2 (05:38→17:18)
[2018-05-06] MEDS: PANTOPRAZOLE 40 MG INJ IV (05:39)
[2018-05-06 05:53] LABS: LACTIC ACID 1.6 mmol/L (0.5-2.0)
[2018-05-06 05:58] LABS: ANION GAP 7 (5-13); BLOOD UREA NITROGEN 25 mg/dl (7-20); CALCIUM 8.3 mg/dl (8.4-10.2); CARBON DIOXIDE 22 mmol/L (21-31); CHLORIDE 112 mmol/L (97-110); CREATININE 1.85 mg/dl (0.44-1.00); Estimated GFR 27 mL/min (>60); GLUCOSE 94 mg/dl (70-220); POTASSIUM 3.8 mmol/L (3.5-5.1); SODIUM 141 mmol/L (135-144)
[2018-05-06] MEDS: CITRIC ACID/NA CITRATE 30 ML CUP PO ×3 (08:23→20:46)
[2018-05-06] MEDS: MEROPENEM 500MG/50 ML (PMX) 50 ML IVPB ×2 (08:23→22:24)
[2018-05-06] MEDS: LEVETIRACETAM 500 MG (PMX) 100 ML IVPB ×2 (08:23→22:24)
[2018-05-06] MEDS: AMIODARONE 200 MG TAB PO ×2 (08:23→20:46)
[2018-05-06] MEDS: FOLIC ACID 1 MG TAB GTB (08:23)
[2018-05-06] MEDS: PHENOBARBITAL 65 MG INJ IV ×2 (08:26→22:19)
[2018-05-06] MEDS: DEXTROSE 5% 1,000 ML IV (12:56)
[2018-05-06] MEDS: ACETAMINOPHEN 325 MG TAB PO (13:17)
[2018-05-06] MEDS: DIPHENHYDRAMINE 50 MG INJ IV (13:17)
[2018-05-06] MEDS: SOD CHLORIDE 0.9% 250 ML IV* (13:20)
[2018-05-06 13:31] LABS: IMMEDIATE SPIN CROSSMATCH 1 2
[2018-05-06] MEDS: SOD FERRIC GLUC COMPLX 125 MG in SOD CHLORIDE 0.9% 100 ML IVPB (15:13)
[2018-05-06] MEDS: ALBUMIN HUMAN 25% 100 ML IV ×2 (16:53→20:47)
[2018-05-06] MEDS: EPOETIN 4000 UNITS/ML (NON ESRD/NON ONCOLOGY) SC (16:56)
[2018-05-07] MEDS ORDERED: PENDING SANTYL ORDER FOR WOUND CARE XX (01:30)
[2018-05-07] MEDS: PANTOPRAZOLE 40 MG INJ IV (05:19)
[2018-05-07] MEDS: FUROSEMIDE 20 MG INJ IV ×2 (05:19→17:24)
[2018-05-07] MEDS: CITRIC ACID/NA CITRATE 30 ML CUP PO ×3 (09:23→22:27)
[2018-05-07] MEDS: FOLIC ACID 1 MG TAB GTB (09:23)
[2018-05-07] MEDS: AMIODARONE 200 MG TAB PO ×2 (09:24→22:27)
[2018-05-07] MEDS: PHENOBARBITAL 65 MG INJ IV (09:24)
[2018-05-07] MEDS: MEROPENEM 500MG/50 ML (PMX) 50 ML IVPB ×2 (09:41→22:26)
[2018-05-07] MEDS: ALBUMIN HUMAN 25% 100 ML IV ×2 (09:42→22:29)
[2018-05-07] MEDS: LEVETIRACETAM 500 MG (PMX) 100 ML IVPB (11:43)
[2018-05-07] MEDS: LEVETIRACETAM (100 MG/ML) 5ML CUP GTB (22:27)
[2018-05-07] MEDS: PHENOBARBITAL (4 MG/ML) 5ML CUP PO (22:30)
[2018-05-08] MEDS: FUROSEMIDE 20 MG INJ IV ×2 (05:39→17:29)
[2018-05-08] MEDS: PANTOPRAZOLE (EC) 40 MG TAB PO (05:39)
[2018-05-08 08:25] LABS: ADD MAN DIFF? NO
[2018-05-08 08:27] LABS: BASOPHILS % 0.4 % (0.0-2.0); EOSINOPHILS # 0.5 10^3/ul (0.0-0.5); EOSINOPHILS % 6.7 % (0.0-7.0); HEMATOCRIT 30.2 % (37.0-47.0); HEMOGLOBIN 9.7 g/dl (12.0-16.0); LYMPHOCYTES # 1.3 10^3/ul (0.8-2.9); LYMPHOCYTES % 18.9 % (15.0-51.0); MEAN CORPUSCULAR HEMOGLOBIN 32.1 pg (29.0-33.0); MEAN CORPUSCULAR HGB CONC 32.1 g/dl (32.0-37.0); MEAN PLATELET VOLUME 9.6 fl (7.4-10.4); MONOCYTE # 0.6 10^3/ul (0.3-0.9); MONOCYTES % 8.2 % (0.0-11.0); NEUTROPHIL # 4.6 10^3/ul (1.6-7.5); NEUTROPHILS % 65.4 % (39.0-77.0); PLATELET COUNT 427 10^3/UL (140-415); RED BLOOD COUNT 3.02 10^6/ul (4.20-5.40); RED CELL DISTRIBUTION WIDTH 18.1 % (11.5-14.5)
[2018-05-08 09:03] LABS: ALANINE AMINOTRANSFERASE 21 IU/L (13-69); ALBUMIN 3.2 g/dl (3.3-4.9); ALBUMIN/GLOBULIN RATIO 1.14; ALKALINE PHOSPHATASE 121 IU/L (42-121); ANION GAP 10 (5-13); ASPARTATE AMINO TRANSFERASE 20 IU/L (15-46); BILIRUBIN,INDIRECT 0.2 mg/dl (0-1.1); BILIRUBIN,TOTAL 0.2 mg/dl (0.2-1.3); BLOOD UREA NITROGEN 28 mg/dl (7-20); CALCIUM 8.5 mg/dl (8.4-10.2); CARBON DIOXIDE 27 mmol/L (21-31); CHLORIDE 108 mmol/L (97-110); Estimated GFR 32 mL/min (>60); GLUCOSE 99 mg/dl (70-220); MAGNESIUM 1.6 mg/dl (1.7-2.5); POTASSIUM 3.3 mmol/L (3.5-5.1); SODIUM 145 mmol/L (135-144)
[2018-05-08] MEDS: LEVETIRACETAM (100 MG/ML) 5ML CUP GTB ×2 (09:30→22:58)
[2018-05-08] MEDS: CITRIC ACID/NA CITRATE 30 ML CUP PO ×3 (09:30→22:58)
[2018-05-08] MEDS: FOLIC ACID 1 MG TAB GTB (09:30)
[2018-05-08] MEDS: MEROPENEM 500MG/50 ML (PMX) 50 ML IVPB ×2 (09:31→22:57)
[2018-05-08] MEDS: PHENOBARBITAL (4 MG/ML) 5ML CUP PO ×2 (09:31→22:59)
[2018-05-08] MEDS: AMIODARONE 200 MG TAB PO ×2 (09:31→22:59)
[2018-05-08] MEDS: ALBUMIN HUMAN 25% 100 ML IV ×2 (11:07→23:00)
[2018-05-08] MEDS: POTASSIUM CHLORIDE 20 MEQ POWDER FOR ORAL SOLN JT (13:51)
[2018-05-08] MEDS: EPOETIN 4000 UNITS/ML (NON ESRD/NON ONCOLOGY) SC (17:31)
[2018-05-09] MEDS: PANTOPRAZOLE (EC) 40 MG TAB PO (05:40)
[2018-05-09 07:43] LABS: ALANINE AMINOTRANSFERASE 21 IU/L (13-69); ALBUMIN 3.7 g/dl (3.3-4.9); ALBUMIN/GLOBULIN RATIO 1.32; ALKALINE PHOSPHATASE 115 IU/L (42-121); ANION GAP 9 (5-13); ASPARTATE AMINO TRANSFERASE 23 IU/L (15-46); BILIRUBIN,INDIRECT 0.3 mg/dl (0-1.1); BILIRUBIN,TOTAL 0.3 mg/dl (0.2-1.3); BLOOD UREA NITROGEN 26 mg/dl (7-20); CALCIUM 8.9 mg/dl (8.4-10.2); CARBON DIOXIDE 30 mmol/L (21-31); CHLORIDE 108 mmol/L (97-110); CREATININE 1.55 mg/dl (0.44-1.00); Estimated GFR 33 mL/min (>60); GLUCOSE 104 mg/dl (70-220); POTASSIUM 3.7 mmol/L (3.5-5.1); SODIUM 147 mmol/L (135-144); TOTAL PROTEIN 6.5 g/dl (6.1-8.1)
[2018-05-09] MEDS: LEVETIRACETAM (100 MG/ML) 5ML CUP GTB ×2 (08:44→20:55)
[2018-05-09] MEDS: CITRIC ACID/NA CITRATE 30 ML CUP PO ×4 (08:44→20:55)
[2018-05-09] MEDS: AMIODARONE 200 MG TAB PO ×2 (08:45→20:55)
[2018-05-09] MEDS: PHENOBARBITAL (4 MG/ML) 5ML CUP PO ×3 (08:45→20:56)
[2018-05-09] MEDS: FOLIC ACID 1 MG TAB GTB (08:45)
[2018-05-09] MEDS: MEROPENEM 500MG/50 ML (PMX) 50 ML IVPB (08:47)
[2018-05-09] MEDS: FUROSEMIDE 20 MG INJ IV (08:48)
[2018-05-09] MEDS: ALBUMIN HUMAN 25% 100 ML IV (08:48)
[2018-05-09] MEDS: DEXTROSE 5% 1,000 ML IV ×2 (10:40→22:50)
[2018-05-10] MEDS: DEXTROSE 5% 1,000 ML IV (02:47)
[2018-05-10] MEDS: PANTOPRAZOLE (EC) 40 MG TAB PO (05:39)
[2018-05-10 07:33] LABS: ALANINE AMINOTRANSFERASE 23 IU/L (13-69); ALBUMIN 3.6 g/dl (3.3-4.9); ALKALINE PHOSPHATASE 127 IU/L (42-121); ANION GAP 10 (5-13); ASPARTATE AMINO TRANSFERASE 23 IU/L (15-46); BILIRUBIN,INDIRECT 0.3 mg/dl (0-1.1); BILIRUBIN,TOTAL 0.3 mg/dl (0.2-1.3); BLOOD UREA NITROGEN 23 mg/dl (7-20); CALCIUM 8.8 mg/dl (8.4-10.2); CARBON DIOXIDE 34 mmol/L (21-31); CHLORIDE 102 mmol/L (97-110); CREATININE 1.43 mg/dl (0.44-1.00); Estimated GFR 36 mL/min (>60); GLUCOSE 112 mg/dl (70-220); POTASSIUM 3.5 mmol/L (3.5-5.1); SODIUM 146 mmol/L (135-144); TOTAL PROTEIN 6.6 g/dl (6.1-8.1)
[2018-05-10] MEDS: AMIODARONE 200 MG TAB PO (09:06)
[2018-05-10] MEDS: CITRIC ACID/NA CITRATE 30 ML CUP PO ×3 (09:06→20:29)
[2018-05-10] MEDS: FUROSEMIDE 20 MG INJ IV (09:06)
[2018-05-10] MEDS: FOLIC ACID 1 MG TAB GTB (09:06)
[2018-05-10] MEDS: LEVETIRACETAM (100 MG/ML) 5ML CUP GTB ×2 (09:06→20:29)
[2018-05-10] MEDS: PHENOBARBITAL (4 MG/ML) 5ML CUP PO ×2 (10:16→20:29)
[2018-05-10] MEDS ORDERED: hydrALAzine 20 MG INJ IV (11:30)
[2018-05-10] MEDS: EPOETIN 4000 UNITS/ML (NON ESRD/NON ONCOLOGY) SC (16:15)
[2018-05-11] MEDS ORDERED: FUROSEMIDE 40 MG TAB PO (06:00)
[2018-05-11] MEDS ORDERED: AMIODARONE 200 MG TAB PO (09:00)
== END 2018-05-10 22:53 | DRG 870 ==
LOC: TEL 05-06 18:34 → E/R 18:16 → ICU 19:01
PROC: 06HY33Z Insertion of Infusion Device into Lower Vein, Percutaneous Approach (ICD-10-PCS; principal; 2018-05-02 17:30)
PROC: 5A1955Z Respiratory Ventilation, Greater than 96 Consecutive Hours (ICD-10-PCS; 2018-05-02 17:30)
PROC: 02H633Z Insertion of Infusion Device into Right Atrium, Percutaneous Approach (ICD-10-PCS; 2018-05-02 17:30)
PROC: 0F798DZ Dilation of Common Bile Duct with Intraluminal Device, Via Natural or Artificial Opening Endoscopic (ICD-10-PCS; 2018-05-02 17:30)
PROC: 0DJ08ZZ Inspection of Upper Intestinal Tract, Via Natural or Artificial Opening Endoscopic (ICD-10-PCS; 2018-05-02 17:30)
DX: A41.9 Sepsis, unspecified organism (principal); R65.21 Severe sepsis with septic shock; I50.33 Acute on chronic diastolic (congestive) heart failure; N17.9 Acute kidney failure, unspecified; E87.0 Hyperosmolality and hypernatremia; G93.49 Other encephalopathy; C71.9 Malignant neoplasm of brain, unspecified; K80.43 Calculus of bile duct with acute cholecystitis with obstruction; J96.10 Chronic respiratory failure, unspecified whether with hypoxia or hypercapnia; I48.0 Paroxysmal atrial fibrillation; G40.909 Epilepsy, unspecified, not intractable, without status epilepticus; D50.9 Iron deficiency anemia, unspecified; E86.0 Dehydration; R13.10 Dysphagia, unspecified; I11.0 Hypertensive heart disease with heart failure; E66.01 Morbid (severe) obesity due to excess calories; E87.5 Hyperkalemia; Z93.1 Gastrostomy status; Z93.0 Tracheostomy status; Z74.01 Bed confinement status; Z68.38 Body mass index [BMI] 38.0-38.9, adult; Z66 Do not resuscitate
CPT/HCPCS: 36430; 36569; 36600; 70450; 71045; 74176; 74330; 76775; 76937; 78226; 80048; 80053; 80061; 80184; 80202; 80307; 82150; 82270; 82607; 82728; 82746; 82803; 83540; 83605; 83690; 83735; 84100; 84439; 84443; 84481; 85025; 85610; 85730; 86140; 86644; 86704; 86706; 86708; 86709; 86803; 86850; 86900; 86901; 86920; 87040; 87081; 87340; 93005; 93306; 94002; 94003; 94640; 94664; 99291-25